=== PATIENT | female | born 1985 | race Caucasian/White ===

== ENCOUNTER 2018-05-12 12:14 | Outpatient (CLI) | payer OTHER ==
[2018-05-12 13:46] LABS: RUPTURE FETAL MEMBRANES NEGATIVE (NEGATIVE)
== END 2018-05-12 15:39 | disposition home or self-care (01) ==
LOC: OBT 12:14 → L-D 12:14 → OBT 15:39
DX: O62.9 Abnormality of forces of labor, unspecified (principal); Z3A.38 38 weeks gestation of pregnancy
CPT/HCPCS: 76815; 76818; 84112

== ENCOUNTER 2018-05-17 02:47 | Inpatient (IN) | payer OTHER ==
[2018-05-17] MEDS: LIDOCAINE 0.5% (SDV) 50 ML INJ INFIL (02:43)
[2018-05-17] MEDS ORDERED: OXYTOCIN 30 UNITS/LR 500 ML IV ×3 (04:00→13:00)
[2018-05-17] MEDS ORDERED: METHYLERGONOVINE 0.2 MG INJ IM (04:00)
[2018-05-17] MEDS ORDERED: CARBOPROST 250 MCG INJ IM (04:00)
[2018-05-17] MEDS ORDERED: MISOPROSTOL 200 MCG TAB PR (04:00)
[2018-05-17] MEDS ORDERED: BUTORPHANOL 2 MG INJ IV (04:00)
[2018-05-17] MEDS: LACTATED RINGER'S 1,000 ML IV* ×3 (04:30→22:50)
[2018-05-17 04:43] LABS: ADD MAN DIFF? NO
[2018-05-17 04:46] LABS: WHITE BLOOD COUNT 11.3 10^3/ul (4.8-10.8)
[2018-05-17 04:46] LABS: BASOPHILS % 0.4 % (0.0-2.0); EOSINOPHILS # 0.1 10^3/ul (0.0-0.5); EOSINOPHILS % 1.1 % (0.0-7.0); HEMATOCRIT 33.6 % (37.0-47.0); HEMOGLOBIN 10.8 g/dl (12.0-16.0); LYMPHOCYTES # 2.2 10^3/ul (0.8-2.9); LYMPHOCYTES % 19.8 % (15.0-51.0); MEAN CORPUSCULAR HEMOGLOBIN 25.1 pg (29.0-33.0); MEAN CORPUSCULAR HGB CONC 32.1 g/dl (32.0-37.0); MEAN PLATELET VOLUME 11.3 fl (7.4-10.4); MONOCYTE # 0.7 10^3/ul (0.3-0.9); MONOCYTES % 5.9 % (0.0-11.0); NEUTROPHIL # 8.2 10^3/ul (1.6-7.5); NEUTROPHILS % 72.1 % (39.0-77.0); PLATELET COUNT 259 10^3/UL (140-415); RED BLOOD COUNT 4.31 10^6/ul (4.20-5.40); RED CELL DISTRIBUTION WIDTH 15.2 % (11.5-14.5)
[2018-05-17 05:06] LABS: INR 0.92; PROTIME 12.4 Sec (11.9-14.9)
[2018-05-17 05:07] LABS: PARTIAL THROMBOPLASTIN TIME 29.6 Sec (23.0-35.0)
[2018-05-17 05:36] LABS: HEPATITIS B SURFACE ANTIGEN NEGATIVE (NEGATIVE)
[2018-05-17] MEDS: LACTATED RINGER'S 1,000 ML IV ×2 (11:47→13:15)
[2018-05-17] MEDS ORDERED: DIPHENHYDRAMINE 50 MG INJ IV (13:00)
[2018-05-17] MEDS ORDERED: NALOXONE (0.4 MG/ML) INJ IV (13:00)
[2018-05-17] MEDS ORDERED: ONDANSETRON 4 MG INJ IV (13:00)
[2018-05-17] MEDS ORDERED: AMPICILLIN 2 GM/NS (PMX) 100 ML (14:26)
[2018-05-17] MEDS: AMPICILLIN 2 GM/NS (PMX) 100 ML IVPB (14:36)
[2018-05-17 15:54] LABS: RAPID PLASMA REAGIN NONREACTIVE (NR)
[2018-05-17] MEDS: AMPICILLIN 1 GM/NS (PMX) 50 ML IVPB ×2 (18:16→22:50)
[2018-05-17] MEDS ORDERED: LIDOCAINE 1% (MPF) 30 ML INJ (18:57)
[2018-05-17] MEDS ORDERED: LIDOCAINE 1% (MPF) 30 ML INJ INJ (19:00)
[2018-05-17] MEDS ORDERED: MINERAL OIL LIGHT 10 ML VIAL TOP (19:00)
[2018-05-17] MEDS: ACETAMINOPHEN 325 MG TAB PO (21:36)
[2018-05-17] MEDS: GENTAMICIN 80 MG/NS (PMX) 50 ML IVPB (21:39)
[2018-05-17] MEDS: FENTAnyl 2MCG/ML-ROPIV 0.2% 100 ML BAG EPI (22:17)
[2018-05-18] MEDS: OXYTOCIN 30 UNITS/LR 500 ML IV ×2 (01:45→02:42)
[2018-05-18] MEDS: MINERAL OIL LIGHT 10 ML VIAL TOP (01:52)
[2018-05-18] MEDS ORDERED: DIBUCAINE 1% 30 GM OINT TOP (02:30)
[2018-05-18] MEDS ORDERED: CARBOPROST 250 MCG INJ IM (02:30)
[2018-05-18] MEDS ORDERED: ONDANSETRON 4 MG INJ IV (02:30)
[2018-05-18] MEDS ORDERED: METHYLERGONOVINE 0.2 MG INJ IM (02:30)
[2018-05-18] MEDS ORDERED: OXYTOCIN 30 UNITS/LR 500 ML IV (02:30)
[2018-05-18] MEDS ORDERED: MISOPROSTOL 200 MCG TAB PR (02:30)
[2018-05-18] MEDS ORDERED: ACETAMINOPHEN 325 MG TAB PO (02:30)
[2018-05-18] MEDS ORDERED: OXYCODONE/ASPIRIN (4.88/325) TAB PO ×2 (02:30)
[2018-05-18] MEDS ORDERED: NACL 0.9% 3 ML SYG IV (02:30)
[2018-05-18] MEDS ORDERED: DIPHENHYDRAMINE 25 MG CAP PO (02:30)
[2018-05-18] MEDS: AMPICILLIN 1 GM/NS (PMX) 50 ML IVPB (02:43)
[2018-05-18] MEDS: LIDOCAINE 0.5% (SDV) 50 ML INJ INJ (02:43)
[2018-05-18] MEDS: IBUPROFEN 600 MG TAB PO ×5 (03:20→23:41)
[2018-05-18] MEDS: WITCH HAZEL/GLYCERIN PAD PR (05:46)
[2018-05-18] MEDS: BENZOCAINE 20% 56 ML SPRAY TOP (05:47)
[2018-05-18] MEDS: CEFAZOLIN 2 GM/50 ML (PMX) 50 ML IVPB ×3 (05:49→22:00)
[2018-05-18] MEDS: LACTATED RINGER'S 1,000 ML IV* ×3 (07:42→20:00)
[2018-05-18 10:31] LABS: RHOGAM PROFILE 1 1
[2018-05-19] MEDS: LACTATED RINGER'S 1,000 ML IV* (04:00)
[2018-05-19] MEDS: IBUPROFEN 600 MG TAB PO ×3 (06:05→17:37)
[2018-05-19 09:04] LABS: ADD MAN DIFF? NO
[2018-05-19 09:10] LABS: WHITE BLOOD COUNT 13.1 10^3/ul (4.8-10.8)
[2018-05-19 09:10] LABS: BASOPHILS % 0.2 % (0.0-2.0); EOSINOPHILS # 0.1 10^3/ul (0.0-0.5); HEMATOCRIT 26.6 % (37.0-47.0); HEMOGLOBIN 8.4 g/dl (12.0-16.0); LYMPHOCYTES # 1.9 10^3/ul (0.8-2.9); LYMPHOCYTES % 14.1 % (15.0-51.0); MEAN CORPUSCULAR HEMOGLOBIN 24.6 pg (29.0-33.0); MEAN CORPUSCULAR HGB CONC 31.6 g/dl (32.0-37.0); MEAN PLATELET VOLUME 11.4 fl (7.4-10.4); MONOCYTE # 0.6 10^3/ul (0.3-0.9); MONOCYTES % 4.6 % (0.0-11.0); NEUTROPHIL # 10.4 10^3/ul (1.6-7.5); NEUTROPHILS % 78.9 % (39.0-77.0); PLATELET COUNT 213 10^3/UL (140-415); RED BLOOD COUNT 3.41 10^6/ul (4.20-5.40); RED CELL DISTRIBUTION WIDTH 15.8 % (11.5-14.5)
[2018-05-19] MEDS: FERROUS SULFATE (EC) 325 MG TAB PO (21:09)
[2018-05-20] MEDS: IBUPROFEN 600 MG TAB PO ×5 (00:10→17:38)
[2018-05-20 08:36] LABS: ADD MAN DIFF? NO
[2018-05-20 08:44] LABS: BASOPHILS % 0.3 % (0.0-2.0); EOSINOPHILS # 0.2 10^3/ul (0.0-0.5); EOSINOPHILS % 1.4 % (0.0-7.0); HEMATOCRIT 25.8 % (37.0-47.0); HEMOGLOBIN 8.1 g/dl (12.0-16.0); LYMPHOCYTES # 1.9 10^3/ul (0.8-2.9); LYMPHOCYTES % 17.5 % (15.0-51.0); MEAN CORPUSCULAR HEMOGLOBIN 24.8 pg (29.0-33.0); MEAN CORPUSCULAR HGB CONC 31.4 g/dl (32.0-37.0); MEAN CORPUSCULAR VOLUME 79.1 fl (82.0-101.0); MEAN PLATELET VOLUME 11.6 fl (7.4-10.4); MONOCYTE # 0.5 10^3/ul (0.3-0.9); MONOCYTES % 4.8 % (0.0-11.0); NEUTROPHIL # 7.9 10^3/ul (1.6-7.5); NUCLEATED RED BLOOD CELLS% 0.2 /100WBC (0.0-0.0); PLATELET COUNT 224 10^3/UL (140-415); RED BLOOD COUNT 3.26 10^6/ul (4.20-5.40); RED CELL DISTRIBUTION WIDTH 15.6 % (11.5-14.5)
[2018-05-20 08:44] LABS: WHITE BLOOD COUNT 10.7 10^3/ul (4.8-10.8)
[2018-05-20] MEDS: FERROUS SULFATE (EC) 325 MG TAB PO (11:01)
== END 2018-05-20 18:59 | disposition home or self-care (01) | DRG 807 ==
LOC: OBT 02:47 → PP1 05-18 04:22 → L-D 02:47 → OBT 03:45 → L-D 03:45
PROVIDERS: Obstetrics & Gynecology
PROC: 10E0XZZ Delivery of Products of Conception, External Approach (ICD-10-PCS; principal; 2018-05-18)
PROC: 0W8NXZZ Division of Female Perineum, External Approach (ICD-10-PCS; 2018-05-18)
DX: O80 Encounter for full-term uncomplicated delivery (principal); Z37.0 Single live birth; Z3A.38 38 weeks gestation of pregnancy
CPT/HCPCS: 62319; 85025; 85610; 85730; 86592; 86850; 86885; 86900; 86901; 87340; 99464